=== PATIENT | male | born 1950 | race Caucasian/White ===

== ENCOUNTER 2022-10-04 14:37 | Outpatient (CLI) | payer MEDICARE, BC ==
--- NOTE | 2022-10-04 16:23 | XRAY Report ---
PROCEDURE: Finger(s) BILAT INDICATIONS: Thumb pain TECHNIQUE: Total of five radiographic views: oblique and lateral views of the left 1st digit; oblique and lateral views of the right 1st digit; and Ball-catcher's view of the bilateral hands. COMPARISON: None. 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 No significant arthritic changes el sewhere. No fracture. No suspicious bone lesion. Regional soft tissues are normal. IMPRESSION: Severe bilateral 1st [facility] osteoarthritis, right greater than left. Reviewed by: Clay Burnette MD on 10/04/2022 4:22 PM PST Approved by: Clay Burnette MD on 10/04/2022 4:22 PM [facility] Station ID: [id number]
== END 2022-10-04 14:38 | disposition home or self-care (01) ==
LOC: DI 14:37
PROVIDERS: ATTEND Internal Medicine
DX: M18.0 Bilateral primary osteoarthritis of first carpometacarpal joints (principal)